=== PATIENT | male | born 1990 | race Caucasian/White ===

== ENCOUNTER 2021-07-17 10:23 | Emergency (ER) | payer SELFPAY ==
[~2021-07-17] VITALS: Ht 172.7 cm; Wt 82.0 kg
[2021-07-17] MEDS ORDERED: SULF1TAB48 PO (11:01)
[2021-07-17] MEDS ORDERED: CEPH500C2 PO (11:01)
[2021-07-17] MEDS ORDERED: NAPR-681 PO (11:01)
[2021-07-17 11:23] VITALS: BP 128/74
== END 2021-07-17 11:24 | disposition home or self-care (01) ==
LOC: ER 10:23
DX: L73.8 Other specified follicular disorders (principal)
CPT/HCPCS: 99283

== ENCOUNTER 2021-07-29 13:52 | Emergency (ER) | payer MEDICAID ==
[~2021-07-29] VITALS: Ht 172.7 cm; Wt 82.0 kg
[~2021-07-29 13:52] MED LIST: CEPH500C2 PO; NAPR-681 PO; SULF1TAB48 PO
[2021-07-29 17:30] LABS: BASOPHILS % 0.6 % (0.0-2.0); EOSINOPHILS % 0.8 % (0.0-5.0); HEMATOCRIT. 47.9 % (42.0-52.0); HEMOGLOBIN. 16.3 g/dL (14.0-18.0); LYMPHOCYTES % 14.7 % (20.0-50.0); MEAN CORPUSCULAR HEMOGLOBIN 29.2 pg (28.0-32.0); MEAN CORPUSCULAR VOLUME 85.9 fL (80.0-94.0); MEAN PLATELET VOLUME 8.3 fl (7.4-10.4); MONOCYTES % 4.3 % (2.0-8.0); NEUTROPHILS % 79.6 % (40.0-76.0); PLATELET 325 x1000/uL (130-400); RED BLOOD CELL COUNT 5.58 mill/uL (4.7-6.1); RED CELL DISTRIBUTION WIDTH 13.3 % (11.6-14.6)
[2021-07-29 17:41] LABS: CHLORIDE 107 mEq/L (98-107)
[2021-07-29] MEDS ORDERED: PREDNISONE 20MG TABLET PO ONE (19:30)
[2021-07-29] MEDS ORDERED: TC1U15 TP (19:39)
[2021-07-29] MEDS ORDERED: DOXY100T2 MT (19:39)
[2021-07-29] MEDS ORDERED: P20 MT (19:39)
[2021-07-29] MEDS ORDERED: HYDR-3735 MT (19:39)
[2021-07-29 19:45] VITALS: BP 126/64
== END 2021-07-29 19:49 | disposition home or self-care (01) ==
LOC: ER 13:52
DX: L73.8 Other specified follicular disorders (principal); R03.0 Elevated blood-pressure reading, without diagnosis of hypertension
CPT/HCPCS: 36415; 80053; 85025; 99283; J7512